=== PATIENT | female | born 1935 | race Caucasian/White ===

== ENCOUNTER → 2022-03-01 | Outpatient (CLI) | payer MEDICARE, BC ==
--- NOTE | 2022-03-01 09:41 | US ---
EXAMINATION TYPE: US venous doppler duplex LE RT DATE OF EXAM: 03/01/2022 9:26 AM COMPARISON: NONE CLINICAL HISTORY: M79.89 RIGHT LEG SWELLING. Right leg swelling. No hx DVT. Not on blood thinners. SIDE PERFORMED: Right TECHNIQUE: The lower extremity deep venous system is examined utilizing real time linear array sonog nakul with graded compression, doppler sonography and color-flow sonography. VESSELS IMAGED: Common Femoral Vein Deep Femoral Vein Greater Saphenous Vein * Femoral Vein Popliteal Vein Small Saphenous Vein * Proximal Calf Veins (* superficial vessels) Right Leg: Negative for DVT IMPRESSION: 1. Right lower extremity ultrasound negative for deep venous thrombosis.
== END | disposition home or self-care (01) ==
LOC: RADUSWWP 08:57
PROVIDERS: ATTEND Family Medicine
DX: M79.89 Other specified soft tissue disorders (principal)

== ENCOUNTER → 2023-07-12 | Outpatient (CLI) | payer MEDICARE, BC ==
--- NOTE | 2023-07-13 19:28 | MR ---
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 Post contrast imaging was performed. Post IV contrast subtraction images were also submitted for review. IV Contrast: 6ml cc Gadobutrol FINDINGS: LOWER CHEST: No gross irregularity. Right breast cyst which is high T2 signal measuring up to 13 mm ABDOMEN Liver: Chemical shift imaging demonstrates signal loss on out of phase imaging. No suspicious hepatic lesions. Scattered high T2 signal probable cysts. Gallbladder and Bile ducts: No evidence for ductal dilation, or biliary stricture or evidence of chol edocholithiasis. The gallbladder is within normal limits. Pancreas: Cystic lesion in the pancreatic uncinate process/head measuring 27 x 23 mm which is felt to be similar to prior on 01/21/2023 given differences in slice selection. Again back to 06/14/2022 No si gnificant postcontrast enhancement. No ductal dilation extending within this lesion. There is mild pa ncreatic duct prominence No evidence for solid mass. Spleen: Normal for size. Adrenal glands: Unremarkable. Kidneys: Simple appearing renal cysts which is high T2 signal. Measuring 14 mm and on the right measu ring 15 mm. No evidence for obstructive uropathy. No suspicious renal masses. Stomach and Bowel: No evidence for bowel wall thickening or evidence for obstruction. Retroperitoneum/Peritoneum: No evidence of pneumoperitoneum or free fluid. Vasculature: No aortic aneurysm. Musculoskeletal: The osseous structures appear intact. Scoliosis changes apex right L3. Lymph Nodes: No gross evidence for lymphadenopathy. Abdominal wall: Unremarkable. IMPRESSION: 1. 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 Attention on follow-up i maging in 2 years with MRI MRCP with contrast to ensure stability. If at that time is stable no furth er surveillance recommended. 2. Hepatic steatosis without suspicious hepatic lesions. No abnormal postcontrast enhancement.
== END | disposition home or self-care (01) ==
LOC: RADMRIMAIN 09:07
PROVIDERS: ATTEND Internal Medicine Gastroenterology
DX: K86.2 Cyst of pancreas (principal); K76.0 Fatty (change of) liver, not elsewhere classified
CPT/HCPCS: 74183; A9585